=== PATIENT | male | born 1995 | race Caucasian/White ===

== ENCOUNTER 2020-06-23 05:57 | Day surgery (SDC) | payer OTHER, SELFPAY ==
[2020-06-23 06:26] VITALS: BP 124/87; PULSE 72; RESP 16; TEMP 36.4; O2SAT 98; BMI 23.1
[2020-06-23] MEDS: Lactated Ringers 1,000 ML 100 ML IV ×3 (06:54→11:45)
[2020-06-23] MEDS: Oxymetazoline 0.05% 1 SPRAY SPRAY.BTL 15 SPRAY (07:25)
[2020-06-23] MEDS: Mupirocin Ointment 22gm Tube 1 APPLIC (11:52)
--- NOTE | 2020-06-23 12:13 | PCM.DC ---
You will use the following diet at home:: No restrictions Discharge Activity: May not drive while taking narcotic pain medications. Call your doctor if your incision/area has: Increased Pain/ Swelling Additional Dressing/Incision Instructions:: sleep with head of bed elevated. saline to nostrils 5 times daily. mupirocin ointment to incision and nostrils twice daily. keep your nasal cast dry. however, the morning of your follow up appointment, get the cast very wet in the shower so it comes off in the office. Allergies/Adverse Reactions: Allergies bee venom protein (honey bee) Allergy (Verified 06/08/20 10:13) Swelling hydrocodone bitartrate [From Vicodin] Allergy (Verified 06/08/20 10:12) Itching Medications to take at Discharge L.acidoph,Paracasei, B.lactis [Probiotic] 1 ea PO DAILY 06/08/20 Multivitamin with Minerals [Multiple Vitamin] 1 ea PO DAILY 06/08/20 Allerton-3 Fatty Acids/Fish Oil [[place] 3 1,000 mg Softgel] 1 ea PO DAILY 06/08/20 Primary Care Physician: Ankit Kamara DO [Primary Care Provider] - Test Results: Test results from this visit will be discussed in further detail at your follow-up appointment, if applicable.
[2020-06-23 12:21] VITALS: BP 124/87; BP 128/51; PULSE 106; RESP 16; TEMP 36.8; O2SAT 97
--- NOTE | 2020-06-23 12:29 | OP.PCM_ITS ---
Problem List (1) Nasal congestion Status: Chronic (2) Nasal turbinate hypertrophy Status: Chronic (3) Nasal septal deviation Status: Chronic (4) Acquired nasal deformity Status: Chronic (5) Nasal valve collapse Status: Chronic Report of Operation Date of Procedure: 06/23/20 Pre-Operative Diagnosis: 1. nasal congestion. 2. nasal septal deviation. 3. aquired nasal deformity. 4. closed nasal bone fracture. 5. internal nasal valve collapse. 6. inferior turbinate hypertrophy Post-Operative Diagnosis: 1. nasal congestion. 2. nasal septal deviation. 3. aquired nasal deformity. 4. closed nasal bone fracture. 5. internal nasal valve collapse. 6. inferior turbinate hypertrophy Surgery/Procedure Performed:: 1. open septorhinoplasty. 2. correction internal nasal valve collapse, right and left. 3. open reduction nasal fracture. 4. submucous resection inferior turbinates, right and left Type of Anesthesia:: General Description of Procedure: On the day of the procedure, after appropriate informed consent was obtained, the patient was brought to the operating room and placed in a supine position on the operating room table. The patient was placed under general endotracheal anesthesia by the anesthesiologist. The endotracheal tube was secured. The eyes were taped. The table was rotated 90 degrees towards the surgeon. Lacri-Lube was placed in the eyes and Tegaderm was placed over the eyes. The nose was injected with 1% lidocaine with epinephrine. The face was prepped and draped in sterile fashion. An inverted-V columellar incision was made with a Rosebush blade. This traversed into the left and right marginal incisions in the nose. It was opened with three-point retraction and an Iris scissors. The left and right lower lateral cartilages were skeletonized. This was taken to the left scroll region and the left upper lateral cartilages were skeletonized as was the right scroll region and right upper lateral cartilage. The anterior septal angle was found by lateralizing the medial crura. However, it was severely deviated to the right and off the maxillary crest. This was carefully dissected using the Pike-tip Bovie. The submucoperichondrial flaps were created with the [place] elevator, first on the left and then the right posteriorly to the bony cartilaginous junction and inferiorly to the maxillary crest. Posteriorly, the patient had a large 2-cm bony spur that impinged into the maxillary natural os. Anteriorly, the patient had a very severe right to mid septal deviation. I A [place] elevator was used to disarticulate the bony cartilaginous junction. A #15 blade was used to disarticulate the left and then right upper lateral cartilage which significantly destabilized the nose. A 1.5 cm L-strut was maintained off the keystone area which was still stable and the [place] elevator and a D-knife were used to remove the remainder of the septum. The deviated portions of the perpendicular plate of the ethmoid bone and vomer were removed using a Jesse- Gaona including the large right-sided septal spur. The head of the right and left inferior turbinates were injected with 1% lidocaine with epinephrine. The head of the left inferior turbinate was incised with a #15 blade. This was dissected submucosally using the [place] elevator, reduced using suction electrocautery, and outfractured using a Boies elevator. Similarly, on the rig ht, the head of the right inferior turbinate was incised with a #15 blade. This was dissected submucosally using a [place] elevator, reduced using suction electrocautery, and outfractured using a Boies elevator. 2mm stab incisions were made at the junction of the nasal dorsum and right/left lateral nasal sidewalls. using a 2mm osteotome, medial and lateral osteotomies were made on the patient's left then right. the severely deviated bony pyramid was then medialized and restored. a dorsal hump reduction was performed and nasal tip refinement was performed. please see the separate report for full details. a 2mm x 1cm cartilage internal early childhood coordinator graft. was sutured between the nasal septum and left upper lateral cartilage using 4-0 PDS. Additionally, a 2 mm x 1 cm internal early childhood coordinator graft was placed on the right side and sutured with 4-0 PDS. At this point, the nose was significantly re-stabilized. Multiple dermal sutures were used to refashion the nasal tip for stability to prevent collapse and a 5 mm x 2 mm columellar strut was used to prevent collapse. The submucoperichondrial flaps were closed with numerous 4-0 chromic sutures several incorporating the anterior septal reconstruction. The inverted-V columellar incision was closed with 7-0 Vicryl and the marginal incisions with interrupted 4-0 chromic. Saldana splints were placed and a dorsal nasal splint was placed. The nose was irrigated with normal saline and the table was rotated 90 degrees toward the anesthesiologist.
[2020-06-23 12:30] VITALS: BP 107/61; BP 124/87; PULSE 80; RESP 16; O2SAT 95
[2020-06-23 12:58] VITALS: BP 124/87; BP 131/66; PULSE 98; RESP 14; TEMP 37; O2SAT 97
[2020-06-23 13:49] VITALS: BP 120/59; BP 124/87; PULSE 81; RESP 16; TEMP 37; O2SAT 97
== END 2020-06-23 13:51 | disposition home or self-care (01) ==
LOC: SDC 06:00 → AC 06:01
PROVIDERS: Anesthesiology; PCP Family Medicine; Referring Provider Otolaryngology; Visit Provider Otolaryngology
PROC: (CPT 30140; principal; 2020-06-23 07:15)
DX: J34.2 Deviated nasal septum (principal); J34.3 Hypertrophy of nasal turbinates; J34.89 Other specified disorders of nose and nasal sinuses; S02.2XXA Fracture of nasal bones, initial encounter for closed fracture; X58.XXXA Exposure to other specified factors, initial encounter; Z11.59 Encounter for screening for other viral diseases
CPT/HCPCS: 30140; 30420; 87635; 94799; J7120; J2405; U0003

== ENCOUNTER → 2020-09-25 | Outpatient (CLI) | payer OTHER, SELFPAY ==
[2020-09-25 14:20] VITALS: BMI 23.1
== END | disposition home or self-care (01) ==
LOC: LABSPEC 18:26
PROVIDERS: PCP Family Medicine; Visit Provider Physician Assistant Surgical
DX: U07.1 COVID-19 (principal)
CPT/HCPCS: 87635; U0003